=== PATIENT | male | born 1985 | race Caucasian/White ===

== ENCOUNTER 2020-08-09 12:09 | Emergency (ER) | payer OTHER, SELFPAY ==
--- NOTE | ~2020-08-09 | US_ITS ---
EXAMINATION: US VENOUS WITH DOPPLER UPPER EXTREMITY, LEFT CLINICAL INFORMATION: Left upper extremity pain COMPARISON: None TECHNIQUE: Ultrasound of the upper extremity is performed using compression sonography and color and pulse Doppler flow with assessment of augmentation of flow. There is also imaging and Doppler assessment of the jugular and subclavian veins. Spectral analysis with color-flow imaging is performed. FINDINGS: Respiratory variation, normal compression, and augmented flow are noted throughout the upper extremity including the axillary, brachial, cubital, and radial and ulnar veins. There is normal flow in the internal jugular and subclavian veins. There is no visible deep or superficial thrombophlebitis. In the left upper arm there is a rounded 6 mm sized hypodensity seen echogenic central area product represent lymph node with a fatty yarely. If the patient's symptoms progress, a followup ultrasound in 5 -7 days might be of value to exclude proximal propagation from a nonvisualized distal arm vein. US/US venous duplex UE LT IMPRESSION: No DVT demonstrated in the left upper extremity
--- NOTE | ~2020-08-09 | XR_ITS ---
EXAMINATION: XR CHEST CLINICAL INFORMATION: Left arm tingling COMPARISON: None TECHNIQUE: 2 views of the chest were obtained. FINDINGS: No significant abnormality is noted involving the heart, lungs, mediastinum, bony thorax or soft tissues. XR/XR chest 2V IMPRESSION: Unremarkable examination.
--- NOTE | ~2020-08-09 | US_ITS ---
EXAMINATION: US ABDOMEN LIMITED CLINICAL INFORMATION: Abnormal liver enzymes. COMPARISON: None TECHNIQUE: Real-time imaging of the right upper quadrant abdominal viscera. FINDINGS: PANCREAS:The visualized head and body of the pancreas appears unremarkable. Remainder of the pancreas is obscured by bowel gas. LIVER: Diffuse increased liver echogenicity The liver contour is normal. . No focal hepatic lesion. There is no intrahepatic biliary duct dilatation seen. GALLBLADDER: Normal. The gallbladder is physiologically distended without evidence of stones, sludge, polyps, wall thickening or pericholecystic fluid. COMMON BILE DUCT: Normal in caliber measuring 0.49 cm in diameter. RIGHT KIDNEY: Normal. No hydronephrosis. No renal calculi or focal parenchymal lesions. The kidney measures 10.6 cm in maximum dimension. FREE FLUID: None. US/US abdomen limited IMPRESSION: 1. There is generalized increase in hepatic echotexture, consistent with fatty infiltration or hepatocellular disease. Please correlate clinically. No focal hepatic mass or intrahepatic biliary duct dilatation is seen. 2. No acute findings otherwise seen.
[2020-08-09 12:29] VITALS: BP 147/105; PULSE 85; RESP 18; TEMP 37; O2SAT 97; BMI 29.8
--- NOTE | 2020-08-09 13:03 | ECG_ITS ---
Test Reason : NUMBNESS Blood Pressure : / mmHG Vent. Rate : 092 BPM Atrial Rate : 092 BPM P-R Int : 150 ms QRS Dur : 084 ms QT Int : 364 ms P-R-T Axes : 063 -01 036 degrees QTc Int : 450 ms Normal sinus rhythm with sinus arrhythmia Normal ECG No previous ECGs available Referred By: Judith Harrington Electronically Signed By:Duncan Zhong
[2020-08-09 13:42] LABS: MANUAL DIFF FLAG NO
[2020-08-09 13:43] LABS: Basophils Absolute Auto 0.1 X10*3/uL (0.0-0.2); Basophils Percent Auto 0.9 % (0-2); Eosinophils Absolute Auto 0.1 X10*3/uL (0.0-0.4); Eosinophils Percent Auto 1.4 % (0-4); Hemoglobin 19.8 g/dl (14.0-18.0); Imm Gran Abs Auto 0.02 X10*3/uL (0.00-0.03); Imm Gran Pct Auto 0.3 % (0.0-0.4); Lymphocytes Absolute Auto 1.2 X10*3/uL (1.2-4.9); Lymphocytes Percent Auto 15.6 % (20-40); Mean Corpuscular HGB Conc 34.2 g/dl (31.0-36.0); Mean Corpuscular Hemoglobin 33.4 pg (27.0-33.0); Mean Corpuscular Volume 97.8 fL (80-98); Mean Platelet Volume 10.8 fL (9.4-12.4); Monocytes Absolute Auto 0.9 X10*3/uL (0.1-1.2); Monocytes Percent Auto 11.9 % (2-11); Neutrophils Absolute Auto 5.5 X10*3/uL (2.0-8.3); Neutrophils Percent Auto 69.9 % (45-73); Platelet Count 205 X10*3/uL (160-400); Red Blood Count 5.92 X10*6/uL (4.60-5.80); Red Cell Distribution Width 13.2 % (11.0-16.0); White Blood Count 7.8 X10*3/uL (4.8-10.8)
[2020-08-09 13:48] LABS: Hematocrit 57.9 % (42-52)
[2020-08-09 13:51] LABS: Prothrombin Time 11.6 SEC (10.8-13.0)
[2020-08-09 14:19] LABS: Alanine Aminotransferase 507 U/L (0-40); Albumin Level 5.3 g/dL (3.5-5.0); Alkaline Phosphatase 138 U/L (39-117); Anion Gap 17 (12-20); Aspartate Amino Transferase 496 U/L (5-37); B Type Natriuretic Peptide 17 pg/mL (<100); Bilirubin Direct 0.5 mg/dL (0.0-0.5); Bilirubin Total 1.1 mg/dL (0.0-1.0); Blood Urea Nitrogen 9 mg/dL (9-16); Calcium 9.9 mg/dL (8.4-10.2); Carbon Dioxide 27 mmol/L (22-29); Chloride 100 mmol/L (96-108); Creatinine Clr Calc Pharmacy 136.8; Estimated Glomerular Filt Rate > 60; Glucose Random 91 mg/dL (60-115); Magnesium 2.3 mg/dL (1.6-2.6); Potassium 4.5 mmol/L (3.3-5.1); Sodium 139 mmol/L (135-145); Total Protein 9.1 g/dL (6.5-8.0); Troponin-I High Sensitivity < 3.5 ng/L (<3.5-35.0)
--- NOTE | 2020-08-09 14:35 | ED.EXTPRO ---
HPI - Extremity Problem General Chief complaint: Extremity Injury, Upper Stated complaint: arm numbness Time Seen by Provider: 08/09/20 12:53 Source: patient Mode of arrival: ambulatory Limitations: no limitations History of Present Illness HPI Narrative: 35-year-old male with no significant past medical history presenting to the ED with complaints of intermittent left arm tingling sensation since yesterday and then today when he was scratching his arm he incidentally noticed he had a nodule to left inner upper arm and he is concerned for a blood clot and is requesting an ultrasound to rule out a blood clot. He denies any dizziness, headaches, changes in vision, sore throat, neck pain/stiffness, chest pain, dyspnea on exertion, orthopnea, shortness of breath, palpitations, extremity edema, recent travel on a long plane train or car ride, hypercoagulation disorder, history of cancer, recent immobilization or surgery, history of DVT or PE, any estrogen usage, any drug usage including IV drugs or cocaine usage, abdominal pain, back pain, dysuria, hematuria, black or bloody stools, diarrhea or constipation or any other symptom complaints or concerns at this time. MD Complaint: extremity pain Onset (ago): day(s) (Two days) Pain Consistency: constant Location: left and upper extremity Radiation: none Relieving factors: nothing Exacerbating factors: nothing Associated symptoms: denies other symptoms Related Data Allergies Allergy/AdvReac Type Severity Reaction Status Date / Time No Known Allergies Allergy Verified 08/09/20 12:58 Review of Systems Review of Systems: Constitutional : No Weight loss, No Fever, No Chills, No Night Sweats, No Fatigue, No Malaise ENT/Mouth : No Hearing loss, No Ear Pain, No Nasal Congestion, No Sinus Pain, No Hoarseness, No sore throat, No Rhinorrhea, No Swallowing Difficulty Eyes: No Eye Pain, No Swelling, No Redness, No Foreign Body, No Discharge, No Vision Changes Cardiovascular : No Chest Pain, No SOB, No Dyspnea on Exertion, No Orthopnea, No Edema, No Palpitations Respiratory : No Cough, No Sputum, No Wheezing, No Smoke Exposure, No Dyspnea Gastrointestinal : No Nausea, No Vomiting, No Diarrhea, No Constipation, No abdominal Pain, No Hematochezia, No Melena Genitourinary : no irregular bleeding, No Dysuria, No Urinary Frequency, No Hematuria, No Urinary Incontinence, No Urgency, No Flank Pain, No Urinary Flow Changes, No Hesitancy Musculoskeletal : No joint pain, No Myalgias, No Joint Swelling Skin : Positive lump to left upper extremity, No Skin Lesions, No rash Neuro : No Weakness, No Numbness, No Paresthesias, No Loss of Consciousness, No Dizziness, No Headache Psych : No Anxiety/Panic, No Depression, No SI/HI/AH/VH, No Social Issues, Heme/Lymph: No Bruising, No Bleeding,No Lymphadenopathy Endocrine : No Polyuria, No Polydipsia, No Temperature Intolerance Yes all other systems are reviewed and are negative [facility] Past Medical History Attestation statement: The following information was validated with the patient. Medical History No known health problems Social History Social History Advance Directives: No Advance Directives Information Provided: Yes Physical Exam Vital Signs: Vital Signs: Last Vital Signs Temp 98.8 F 08/09/20 16:00 Pulse 79 08/09/20 16:00 Resp 19 08/09/20 16:00 BP 140/66 H 08/09/20 16:00 Pulse Ox 96 08/09/20 16:00 Body Mass Index 29.8 vital signs have been reviewed as normal and appeared to be correct. Blood pressure hypertensive 147/105. Heart rate normal. Respiration rate normal. Temperature normal. Oxygen saturation normal. Appearance: Alert. Oriented X3. No acute distress. Head: Normal external exam. Normocephalic. Eyes: PERRLA. EOMI. Conjunctiva and sclera normal. Eyelids normal. ENT: Pharynx normal. Uvula midline. Moist mucous membranes. No trismus noted. No drooling noted. No muffled voice noted. Neck: Normal inspection. Neck supple. FROM. No adenopathy. No meningeal signs. CVS: Normal heart rate and rhythm. Heart sound normal. No murmurs noted. Pulses normal throughout. Respiratory: No respiratory distress. Painless inspiration. Breath sounds normal. No wheezes/rales/rhonchi noted. Chest nontender. No accessory muscle usage noted or decreased air movement noted. Abdomen: Soft and nontender. Nondistended. No guarding. No rigidity. Bowel sounds normal in all 4 quadrants. No distention noted. No organomegaly noted. No visible injury noted. No rebound tenderness. Negative Rovsing sign. Negative obturator's sign. Negative psoas sign. Negative Odell sign. Back: Full range of motion noted. Skin: Skin warm and dry. Normal skin color. Normal skin turgor. No rashes/lesions/lacerations noted. Extremities: To left upper extremity patient has tenderness to palpation with possible nodule vs inflamed lymph node. Otherwise all other Extremities exhibit normal range of motion and nontender. Neuro: Oriented X 3. No motor deficit. No sensory deficit. Reflexes normal. Normal steady gait. Course Course Course Narrative: 14:40 - Patient with an elevated RBC at 5.9, H/H at 19.8/57.9, total bilirubin 1.1. AST 496. ALT 507. Alkaline phosphate 138. Total protein 9.1. Albumin 5.3. Otherwise all other labs are within normal limits. - CXR neg for pna or any other acute processes. - EKG normal sinus rhythm with sinus arrhythmia no acute ischemic changes are noted. - due to patient's elevated LFTs I ordered an abdominal ultrasound. Reevaluation(s) Reevaluation #1: - liver ultrasound revealed There is generalized increase in hepatic echotexture, consistent with fatty infiltration or hepatocellular disease. Please correlate clinically. No focal hepatic mass or intrahepatic biliary duct dilatation is seen. - an ultrasound of left upper extremity revealed enlarged lymph node otherwise no other acute processes. - therefore I tried to convince the patient to be admitted although he is refusing admission and reports that he will follow up outpatient. I explained to him that is very important that he stops drinking today and he reported that he will be going to [place] to celebrate his friend by in a new house and he will be drinking I explained to him that this can be dangerous due to his abnormal liver enzymes and abnormal liver ultrasound and he understands and agrees with the plan to follow up with referrals and his PCP and to return if any new or worsening symptoms. Time: 16:52 MDM - Extremity (Nontraumatic) MDM Narrative Medical decision making narrative: 13pm - 35-year-old male with no significant past medical history presenting to the ED with complaints of intermittent left arm tingling sensation since yesterday and then today when he was scratching his arm he incidentally noticed he had a nodule to left inner upper arm and he is concerned for a blood clot and is requesting an ultrasound to rule out a blood clot. - Plan: Labs, CXR, EKG, US of LUE for dvt r/o, CXR then re-evaluate Medical Records Attestation: I reviewed the patient's medical records. Lab Data Attestation: I reviewed the patient's lab results. Result diagrams: 08/09/20 13:36 08/09/20 13:36 Labs: Lab Results 08/09/20 08/09/20 08/09/20 Range/Units 13:36 13:36 13:36 WBC 7.8 (4.8-10.8) X10*3/uL RBC 5.92 H (4.60-5.80) X10*6/uL Hgb 19.8 H (14.0-18.0) g/dl Hct 57.9 H (42-52) % MCV 97.8 (80-98) fL MCH 33.4 H (27.0-33.0) pg MCHC 34.2 (31.0-36.0) g/dl RDW 13.2 (11.0-16.0) % Plt Count 205 (160-400) X10*3/uL MPV 10.8 (9.4-12.4) fL Immature Gran % (Auto) 0.3 (0.0-0.4) % Neut % (Auto) 69.9 (45-73) % Lymph % (Auto) 15.6 L (20-40) % [place] % (Auto) 11.9 H (2-11) % Eos % (Auto) 1.4 (0-4) % Baso % (Auto) 0.9 (0-2) % Lymph # (Auto) 1.2 (1.2-4.9) X10*3/uL [place] # (Auto) 0.9 (0.1-1.2) X10*3/uL Eos # (Auto) 0.1 (0.0-0.4) X10*3/uL Baso # (Auto) 0.1 (0.0-0.2) X10*3/uL Abs Immat Gran (auto) 0.02 (0.00-0.03) X10*3/uL Absolute Neuts (auto) 5.5 (2.0-8.3) X10*3/uL Absolute Nucleated RBC 0.000 (0.0-0.012) X10*3/uL Nucleated RBC % (auto) 0.0 (0.0-0.2) /100WBC PT 11.6 (10.8-13.0) SEC INR 1.0 (0.9-1.1) Sodium 139 (135-145) mmol/L Potassium 4.5 (3.3-5.1) mmol/L Chloride 100 (96-108) mmol/L Carbon Dioxide 27 (22-29) mmol/L Anion Gap 17 (12-20) BUN 9 (9-16) mg/dL Creatinine 0.93 (0.5-1.4) mg/dL Estim Creat Clear Calc 136.8 Estimated GFR > 60 Random Glucose 91 (60-115) mg/dL Calcium 9.9 (8.4-10.2) mg/dL Magnesium 2.3 (1.6-2.6) mg/dL Total Bilirubin 1.1 H (0.0-1.0) mg/dL Direct Bilirubin 0.5 (0.0-0.5) mg/dL AST 496 H (5-37) U/L ALT 507 H (0-40) U/L Alkaline Phosphatase 138 H (39-117) U/L Troponin I High Sens (<3.5-35.0) ng/L B-Natriuretic Peptide (<100) pg/mL Total Protein 9.1 H (6.5-8.0) g/dL Albumin 5.3 H (3.5-5.0) g/dL 08/09/20 Range/Units 13:36 WBC (4.8-10.8) X10*3/uL RBC (4.60-5.80) X10*6/uL Hgb (14.0-18.0) g/dl Hct (42-52) % MCV (80-98) fL MCH (27.0-33.0) pg MCHC (31.0-36.0) g/dl RDW (11.0-16.0) % Plt Count (160-400) X10*3/uL MPV (9.4-12.4) fL Immature Gran % (Auto) (0.0-0.4) % Neut % (Auto) (45-73) % Lymph % (Auto) (20-40) % [place] % (Auto) (2-11) % Eos % (Auto) (0-4) % Baso % (Auto) (0-2) % Lymph # (Auto) (1.2-4.9) X10*3/uL [place] # (Auto) (0.1-1.2) X10*3/uL Eos # (Auto) (0.0-0.4) X10*3/uL Baso # (Auto) (0.0-0.2) X10*3/uL Abs Immat Gran (auto) (0.00-0.03) X10*3/uL Absolute Neuts (auto) (2.0-8.3) X10*3/uL Absolute Nucleated RBC (0.0-0.012) X10*3/uL Nucleated RBC % (auto) (0.0-0.2) /100WBC PT (10.8-13.0) SEC INR (0.9-1.1) Sodium (135-145) mmol/L Potassium (3.3-5.1) mmol/L Chloride (96-108) mmol/L Carbon Dioxide (22-29) mmol/L Anion Gap (12-20) BUN (9-16) mg/dL Creatinine (0.5-1.4) mg/dL Estim Creat Clear Calc Estimated GFR Random Glucose (60-115) mg/dL Calcium (8.4-10.2) mg/dL Magnesium (1.6-2.6) mg/dL Total Bilirubin (0.0-1.0) mg/dL Direct Bilirubin (0.0-0.5) mg/dL AST (5-37) U/L ALT (0-40) U/L Alkaline Phosphatase (39-117) U/L Troponin I High Sens < 3.5 (<3.5-35.0) ng/L B-Natriuretic Peptide 17 (<100) pg/mL Total Protein (6.5-8.0) g/dL Albumin (3.5-5.0) g/dL Imaging Data Left upper extremity venous duplex ultrasound: Attestation: I personally reviewed and interpreted this imaging study as follows: Radiologist's impression: FINDINGS: Respiratory variation, normal compression, and augmented flow are noted throughout the upper extremity including the axillary, brachial, cubital, and radial and ulnar veins. There is normal flow in the internal jugular and subclavian veins. There is no visible deep or superficial thrombophlebitis. In the left upper arm there is a rounded 6 mm sized hypodensity seen echogenic central area product represent lymph node with a fatty yarely. If the patient's symptoms progress, a followup ultrasound in 5 -7 days might be of value to exclude proximal propagation from a nonvisualized distal arm vein. US/US venous duplex UE LT IMPRESSION: No DVT demonstrated in the left upper extremity Abdominal limited ultrasound of liver: Attestation: I personally reviewed and interpreted this imaging study as follows: Radiologist's impression: FINDINGS: PANCREAS:The visualized head and body of the pancreas appears unremarkable. Remainder of the pancreas is obscured by bowel gas. LIVER: Diffuse increased liver echogenicity The liver contour is normal. . No focal hepatic lesion. There is no intrahepatic biliary duct dilatation seen. GALLBLADDER: Normal. The gallbladder is physiologically distended without evidence of stones, sludge, polyps, wall thickening or pericholecystic fluid. COMMON BILE DUCT: Normal in caliber measuring 0.49 cm in diameter. RIGHT KIDNEY: Normal. No hydronephrosis. No renal calculi or focal parenchymal lesions. The kidney measures 10.6 cm in maximum dimension. FREE FLUID: None. US/US abdomen limited IMPRESSION: 1. There is generalized increase in hepatic echotexture, consistent with fatty infiltration or hepatocellular disease. Please correlate clinically. No focal hepatic mass or intrahepatic biliary duct dilatation is seen. 2. No acute findings otherwise seen. Chest x-ray: Attestation: I personally reviewed and interpreted this imaging study as follows: Radiologist's impression: FINDINGS: No significant abnormality is noted involving the heart, lungs, mediastinum, bony thorax or soft tissues. XR/XR chest 2V IMPRESSION: Unremarkable examination. Discharge Plan Discharge Clinical Impression: Abnormal liver enzymes, Abnormal liver ultrasound, Tingling of left upper extremity, Lymph node enlargement Patient Disposition: Home, Self-Care Instructions: Liver Disease Diet (DC), Lymphadenopathy (ED) Additional Instructions: You have abnormal liver enzymes and an abnormal ultrasound of your liver I explained to you that you should be admitted although you refused I recommend that you stop drinking as soon as possible. Follow-up with primary care provider and the referrals that I gave you below. Return if any new or worsening symptoms. Referrals: Zhang Watson MD [Physician] - 2 days Chiki Montgomery MD [Physician] - 2 days Caesar Becerril [Physician] - 2 days Discharge Date/Time: 08/09/20 16:53 Print Language: American
[2020-08-09 16:00] VITALS: BP 140/66; PULSE 79; RESP 19; TEMP 37.1; O2SAT 96
[2020-08-11 04:16] LABS: HBS Num1 > 1000.00 mIU/mL (0-7.99); HBc Num1 0.12 S/CO (0.00-0.79); HBsAGNum1 0.13 S/CO (0.00-0.99); Hepatitis B Core Antibody Nonreactive (Nonreactive); Hepatitis B Surface Antigen Negative (Negative); ~Hepatitis B Surface Antibody REACTIVE (Nonreactive); ~Hepatitis C Antibody Nonreactive (Nonreactive)
[2020-08-12 04:35] LABS: Hepatitis A Antibody IgM 0.18 Index (0-0.79); ~Hepatitis A Antibody IgM Nonreactive (Nonreactive)
== END 2020-08-09 16:53 | disposition home or self-care (01) ==
PROVIDERS: Physician Assistant Medical; Emergency Provider Emergency Medicine Emergency Medical Services
DX: R94.5 Abnormal results of liver function studies (principal); R93.2 Abnormal findings on diagnostic imaging of liver and biliary tract; R20.2 Paresthesia of skin; R59.9 Enlarged lymph nodes, unspecified; M79.602 Pain in left arm
CPT/HCPCS: 36415; 71046; 76705; 80053; 80076; 82248; 83735; 83880; 84484; 85025; 85610; 86704; 86706; 86709; 86803; 87340; 93005; 93971; 99284; 99285